=== PATIENT | female | born 2000 | race African-American/Black ===

== ENCOUNTER 2020-07-01 14:38 | Emergency (ER) | payer OTHER ==
[~2020-07-01] VITALS: Ht 167.6 cm; Wt 70.0 kg
[2020-07-01] MEDS ORDERED: BACITRACIN ZINC OINT UDPKT TOP ONE ×2 (15:15→17:00)
[2020-07-01] MEDS ORDERED: LIDOCAINE HCL/PF 1% 10 MG/ML 5ML VIAL IJ ONE (15:15)
[2020-07-01] MEDS ORDERED: LIDOCAINE 1%/EPI 1:100,000 10 ML VIAL IJ ONE (17:00)
[2020-07-01] MEDS ORDERED: ACETAMINOPHEN 325MG TABLET PO ONE (17:00)
[2020-07-01 18:32] VITALS: BP 118/78
== END 2020-07-01 18:33 | disposition home or self-care (01) ==
LOC: ER 14:38
DX: S71.111A Laceration without foreign body, right thigh, initial encounter (principal); O26.891 Other specified pregnancy related conditions, first trimester; Z3A.12 12 weeks gestation of pregnancy; W01.0XXA Fall on same level from slipping, tripping and stumbling without subsequent striking against object, initial encounter; Y93.39 Activity, other involving climbing, rappelling and jumping off; Y92.9 Unspecified place or not applicable
CPT/HCPCS: 12004; 76801; 76817; 99284; J3490

== ENCOUNTER 2020-07-04 13:07 | Emergency (ER) | payer OTHER ==
[~2020-07-04] VITALS: Ht 167.6 cm; Wt 65.0 kg
[2020-07-04 14:22] VITALS: BP 101/60
== END 2020-07-04 14:23 | disposition home or self-care (01) ==
LOC: ER 13:07
DX: S71.111D Laceration without foreign body, right thigh, subsequent encounter (principal); X58.XXXD Exposure to other specified factors, subsequent encounter
CPT/HCPCS: 99281

== ENCOUNTER 2024-07-01 20:13 | Emergency (ER) | payer OTHER ==
[~2024-07-01] VITALS: Ht 170.2 cm; Wt 68.0 kg
[2024-07-01 20:15] VITALS: TEMP 98.2; O2SAT 98
[2024-07-01] MEDS: ONDANSETRON HCL 4MG/2ML INJ IV STA (21:16)
[2024-07-01] MEDS: SODIUM CHLORIDE 0.9% 1,000 ML IV ONE (21:16)
[2024-07-01 21:30] LABS: BASOPHILS % 0.2 % (0.0-2.0); EOSINOPHILS % 0.1 % (0.0-5.0); HEMATOCRIT. 34.9 % (36.0-48.0); HEMOGLOBIN. 11.5 g/dL (12.0-16.0); LYMPHOCYTES % 10.2 % (20.0-50.0); MEAN CORPUSCULAR HEMOGLOBIN 28.4 pg (28.0-32.0); MEAN CORPUSCULAR HGB CONC 32.9 g/dL (31.0-37.0); MEAN CORPUSCULAR VOLUME 86.5 fL (81.0-99.0); MONOCYTES % 4.7 % (2.0-8.0); NEUTROPHILS % 84.8 % (40.0-76.0); PLATELET 355 x1000/uL (130-400); RED BLOOD CELL COUNT 4.04 mill/uL (4.2-5.4); RED CELL DISTRIBUTION WIDTH 13.9 % (11.6-14.6); WHITE BLOOD COUNT 7.4 x1000/uL (4.5-11.0)
[2024-07-01 21:32] LABS: CHLORIDE 106 mEq/L (98-107); SODIUM 139 mEq/L (136-145)
[2024-07-01 21:33] LABS: CALCIUM 9.6 mg/dL (8.7-10.4); CARBON DIOXIDE 26 mEq/L (21-32)
[2024-07-01 21:37] LABS: HCG SCREEN NEGATIVE
[2024-07-01 21:38] LABS: CREATININE 0.8 mg/dL (0.6-1.0); GLUCOSE 101 mg/dL (70-105); UREA NITROGEN BLOOD 13 mg/dL (9-23)
[2024-07-01 21:39] LABS: ETHANOL BLOOD < 10 mg/dL (<10)
[2024-07-01 21:40] LABS: ALANINE AMINOTRANSFERASE 15 IU/L (10-49); ALBUMIN 4.5 g/dL (3.2-4.8); ASPARTATE AMINOTRANSFERASE 22 IU/L (<34); BILIRUBIN DIRECT 0.2 mg/dL (<=3.0); BILIRUBIN TOTAL 0.5 mg/dL (0.1-1.0); PROTEIN TOTAL 7.6 g/dL (6.0-8.3)
[2024-07-01] MEDS: POTASSIUM CHLORIDE 20MEQ/PACKET PO ONE (22:01)
[2024-07-01 22:53] VITALS: BP 103/38; PULSE 82; RESP 16; O2SAT 98
== END 2024-07-01 22:54 | disposition home or self-care (01) ==
LOC: ER 20:13
DX: E86.0 Dehydration (principal); E87.6 Hypokalemia; R11.2 Nausea with vomiting, unspecified
CPT/HCPCS: 80076; 80048; 80320; 84703; 83690; 85025; 36415; 96361; 96374; 99283; J2405; J7030; Z7610 ×2; G0480